=== PATIENT | male | born 2000 | race African-American/Black ===

== ENCOUNTER 2023-10-16 11:29 | Emergency (ER) | payer OTHER ==
[~2023-10-16] VITALS: Ht 188 cm; Wt 181.4 kg
[2023-10-16 11:34] VITALS: BP 160/82; PULSE 60; RESP 20; TEMP 98.1; O2SAT 99
[2023-10-16] MEDS ORDERED: FUL-GLO OP ONE (11:45)
[2023-10-16] MEDS ORDERED: TETRACAINE HCL ONE (11:45)
[2023-10-16 12:00] VITALS: BP 154/86; PULSE 83; RESP 20; TEMP 98.1; O2SAT 99
== END 2023-10-16 12:01 | disposition home or self-care (01) ==
LOC: ER 11:29
DX: H10.9 Unspecified conjunctivitis (principal); F12.90 Cannabis use, unspecified, uncomplicated
CPT/HCPCS: 99283